=== PATIENT | male | born 1970 | race Caucasian/White ===

== ENCOUNTER → 2018-08-26 | Outpatient (CLI) | payer OTHER ==
--- NOTE | 2018-08-27 09:24 | ECHOF ---
Referral Reason:R94.31 Abnormal EKG MEASUREMENTS -------- HEIGHT: 188.0 cm WEIGHT: 106.6 kg BP: 130/83 RVIDd: 3.6 cm (< 3.3) IVSd: 1.5 cm (0.6 - 1.1) LVIDd: 4.3 cm (3.9 - 5.3) LVPWd: 1.2 cm (0.6 - 1.1) IVSs: 1.9 cm LVIDs: 2.9 cm LVPWs: 1.9 cm LA Diam: 4.1 cm (2.7 - 3.8) LAESV Index (A-L): 19.76 ml/m Ao Diam: 4.6 cm (2.0 - 3.7) AV Cusp: 2.8 cm (1.5 - 2.6) MV EXCURSION: 22.213 mm (> 18.000) MV EF SLOPE: 114 mm/s (70 - 150) EPSS: 0.3 cm MV E Miguel: 0.71 m/s MV DecT: 170 ms MV A Miguel: 0.56 m/s MV E/A Ratio: 1.26 RAP: 5.00 mmHg RVSP: 20.59 mmHg FINDINGS -------- Sinus rhythm. This was a technically good study. The left ventricular size is normal. There is moderate concentric left ventricular hypertrophy. O verall left ventricular systolic function is normal with, an EF between 60 - 65 %. The right ventricle is mildly enlarged. Normal LA size by volume 22+/-6 ml/m2. The right atrium is normal in size. The aortic valve is trileaflet and appears structurally normal. There is trace mitral regurgitation. Mild tricuspid regurgitation present. Right ventricular systolic pressure is normal at < 35 mmHg. Trace/mild (physiologic) pulmonic regurgitation. 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 Normal inferior vena cava with normal inspiratory collapse consistent with estimated right atrial pre ssure of 5 mmHg. There is no pericardial effusion. CONCLUSIONS -------- 1. Sinus rhythm. 2. This was a technically good study. 3. The left ventricular size is normal. 4. There is moderate concentric left ventricular hypertrophy. 5. Overall left ventricular systolic function is normal with, an EF between 60 - 65 %. 6. Normal LA size by volume 22+/-6 ml/m2. 7. The right atrium is normal in size. 8. The aortic valve is trileaflet and appears structurally normal. 9. There is trace mitral regurgitation. 10. Mild tricuspid regurgitation present. 11. Right ventricular systolic pressure is normal at < 35 mmHg. 12. Trace/mild (physiologic) pulmonic regurgitation. 13. 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 14. Normal inferior vena cava with normal inspiratory collapse consistent with estimated right atrial pressure of 5 mmHg. 15. There is no pericardial effusion. SYSTEM ARCHIVE ANALYST: Roberta Perez RDCS
== END ==
LOC: RADECHMAIN 14:45
PROVIDERS: ATTEND Family Medicine
DX: I07.1 Rheumatic tricuspid insufficiency (principal); I37.1 Nonrheumatic pulmonary valve insufficiency
CPT/HCPCS: 93306

== ENCOUNTER → 2018-09-16 | Outpatient (CLI) | payer OTHER ==
--- NOTE | 2018-09-17 16:46 | CT ---
CT CHEST FOR PULMONARY EMBOLISM. EXAMINATION TYPE: CT angio chest DATE OF EXAM: 09/16/2018 INDICATION: aortic aneurysm CT DLP: 738.4 mGycm, Automated exposure control for dose reduction was used. CONTRAST: Patient injected with 100 mL of Isovue 370. COMPARISON: None TECHNIQUE: CT of the chest is performed on a spiral scan at 2 mm thick sections. Study is performed with intravenous contrast timed for evaluation for pulmonary embolism. This will limit additional po rtions of the evaluation. 3-D MIP images reconstructed by the technologist are reviewed on the compu ter in the coronal and sagittal planes. Three-D reconstructed images through the thoracic and proxima l abdominal aorta are performed. FINDINGS: Timing of contrast was for optimization of the arterial system. No obvious pulmonary emboli are evide nt. Aorta tapers normally through its visualized course. Aortic root measures 3.5 cm. The ascending thora cic aorta at the level of the main pulmonary artery is 3.8 cm. The main pulmonary artery at the bifur cation is 3.1 cm. Aortic arch is 2.6 cm. The descending thoracic aorta is 2.5 cm. The proximal abdomi nal aorta at the level the renal arteries is 2.1 cm. No dissection is evident. There is a three-vesse l arch. Celiac axis and superior mesenteric artery as well as the bilateral renal arteries appear nor mal. Portion of the thyroid visualized is normal. Tracheobronchial tree is normal. No enlarged mediastinal or hilar adenopathy is evident. Mild fatty infiltration liver may be present. There is diffuse nodularity and thickening through the adrenal gland. On the right this has several nodules measuring 1.9 cm, 1.4 cm, and 1.0 cm. On the lef t there is a small nodule measuring 1.3 cm. Lung windows are clear. Limited CT section through the upper abdomen are unremarkable. IMPRESSIONS: 1. No CT evidence of thoracic or abdominal aortic aneurysm within the [id number].
== END | disposition home or self-care (01) ==
LOC: RADCTMAIN 15:11
PROVIDERS: ATTEND Family Medicine
DX: I71.2 Thoracic aortic aneurysm, without rupture (principal)
CPT/HCPCS: 71275; Q9967

== ENCOUNTER 2021-05-10 08:05 | Day surgery (SDC) | payer OTHER ==
[2021-05-05 11:45] VITALS: BMI 35.3
[2021-05-10 08:48] VITALS: TEMP 97.1
[2021-05-10] MEDS: LACTATED RINGERS 1,000 ML IV SCH ×2 (08:52→09:00)
[2021-05-10] MEDS ORDERED: LIDOCAINE 1% (10MG/ML) FOR IV START INTRADERMA ONE (08:53)
[2021-05-10] MEDS ORDERED: MIDAZOLAM 2 MG/2 ML VIAL ONE (09:01)
[2021-05-10] MEDS ORDERED: PROPOFOL 10 MG/ML 20 ML VIAL IV ONE (09:01)
--- NOTE | 2021-05-10 09:43 | P.PCN ---
Date of Procedure: 05/10/21 Procedure(s) Performed: BRIEF HISTORY: Patient is a 50-year-old pleasant male white male scheduled for an elective colonoscopy as a part of screening for colorectal neoplasia. PROCEDURE PERFORMED: Colonoscopy with snare polypectomy PREOPERATIVE DIAGNOSIS: screening for colon cancer. IV sedation per Anesthesia. PROCEDURE: After informed consent was obtained, the patient, was brought into the endoscopy unit. IV sedation was administered by Anesthesia under continuous monitoring. Digital rectal examination was normal. Initially the Olympus CF-160 flexible video colonoscope was then inserted in the rectum, gradually advanced into the cecum without any difficulty. Careful examination was performed as the scope was gradually being withdrawn. Ileocecal valve and the appendiceal orifice were visualized and appeared normal. Prep was excellent. Mucosa of the cecum, ascending colon, appeared normal. In the transverse colon there was a 5 mm sessile polyp removed by snare polypectomy. In the descending colon there were 3 polyps measuring between 5 mm and 1 cm in size removed by snare polypectomy. In the sigmoid colon there was a 1 cm centimeter polyp removed by snare polypectomy. In the distal rectum there was a 1 cm polyp removed by snare polypectomy. Retroflexion was performed in the rectum and no lesions were seen. The patient tolerated the procedure well. IMPRESSION: 5 mm transverse colon polyp status post polypectomy 5 mm 2 and 1 cm descending colon polyp status post polypectomy 1 cm sigmoid polyp status post polypectomy 1 cm distal rectal polyp status post polypectomy RECOMMENDATIONS: Findings of this examination were discussed with the patient as well as his family. He was advised to follow with the biopsy results. If the biopsy results adenoma he can have a repeat colonoscopy in 3 years.
[2021-05-10 10:03] VITALS: BP 134/88; PULSE 72; RESP 18
== END 2021-05-10 10:16 | disposition home or self-care (01) ==
LOC: ORWHC2ENDO 08:05
PROVIDERS: ATTEND Internal Medicine Gastroenterology
DX: Z12.11 Encounter for screening for malignant neoplasm of colon (principal); D12.2 Benign neoplasm of ascending colon; D12.3 Benign neoplasm of transverse colon; D12.4 Benign neoplasm of descending colon; K62.1 Rectal polyp; Z86.010 Personal history of colon polyps; J45.909 Unspecified asthma, uncomplicated; G47.33 Obstructive sleep apnea (adult) (pediatric); Z79.899 Other long term (current) drug therapy
CPT/HCPCS: 45385; 88305; J2250; J2704